=== PATIENT | male | born 1980 | race Two or more races ===

== ENCOUNTER 2018-08-18 14:26 | Emergency (ER) | payer MEDICAID ==
[~2018-08-18] VITALS: Ht 180.3 cm; Wt 74.4 kg
[2018-08-18 14:30] VITALS: BP 113/72
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
[2018-08-18] MEDS ORDERED: Acetaminophen 500mg (ES) tab ORAL ONE (14:45)
[2018-08-18 14:58] LABS: BASOPHILS % (AUTO) 0.4 % (0.0-2.0); EOSINOPHILS % (AUTO) 1.1 % (0.0-3.0); HEMATOCRIT 40.9 % (42.0-52.0); HEMOGLOBIN 14.1 G/DL (14.2-18.0); LYMPHOCYTES % (AUTO) 19.9 % (20.0-45.0); MEAN CORPUSCULAR VOLUME 91 FL (80-99); MONOCYTES % (AUTO) 8.2 % (1.0-10.0); NEUTROPHILS % (AUTO) 70.4 % (45.0-75.0); PLATELET COUNT 265 K/UL (150-450); RED BLOOD COUNT 4.52 M/UL (4.70-6.10); RED CELL DISTRIBUTION WIDTH 12.9 % (11.6-14.8); WHITE BLOOD COUNT 8.1 K/UL (4.8-10.8)
--- NOTE | 2018-08-18 15:00 | NUR ---
ED Nurse Note: CT called.
[2018-08-18 15:33] LABS: ANION GAP 10 mmol/L (5-15); BLOOD UREA NITROGEN 13 mg/dL (7-18); CALCIUM 8.5 MG/DL (8.5-10.1); CARBON DIOXIDE 29 MMOL/L (21-32); CHLORIDE 105 MMOL/L (98-107); POTASSIUM 3.3 MMOL/L (3.5-5.1); SODIUM 144 MMOL/L (136-145)
[2018-08-18 15:37] LABS: ALANINE AMINOTRANSFERASE 23 U/L (12-78); ALBUMIN 3.2 G/DL (3.4-5.0); ALBUMIN/GLOBULIN RATIO 0.9 (1.0-2.7); ALKALINE PHOSPHATASE 83 U/L (46-116); ASPARTATE AMINO TRANSFERASE 16 U/L (15-37); BILIRUBIN,TOTAL 0.9 MG/DL (0.2-1.0); CREATINE KINASE 224 U/L (26-308)
--- NOTE | 2018-08-18 15:42 | Diagnostic Imaging Report ---
Indication: Head trauma headache Technique: Contiguous 5 mm thick transaxial imaging of the head obtained in a Siemens Sensation [address] scanner. Soft tissue and bone windows generated. Automatic Exposure Control was utilized. Total Dose length Product (DLP): 2115.[address] Dose Index Volume (CTDIvol): 70.38,28.19 mGy Comparison: none Findings: The size and configuration of the cortical sulci, basal cisterns, and ventricles are within normal limits for age. There is no mass effect, midline shift, or edema identified. There is no evidence of acute hemorrhage or abnormal intra-axial or extra-axial fluid collections. Left maxillary fracture is further discussed on CT facial bones. Impression: No mass effect, edema or acute bleed. Left facial injury. Refer to the CT facial bones. The CT scanner at [facility] is accredited by the [employer] and the scans are performed using dose optimization techniques as appropriate to a performed exam including Automatic Exposure control.
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
--- NOTE | 2018-08-18 15:55 | Diagnostic Imaging Report ---
Indication: Foot pain Comparison: None Findings: 2 views of the left foot were obtained. There is a fracture at the base of the first distal phalange extending into the interphalangeal joint. No other fractures are seen. IMPRESSION: Acute fracture involving the hallux
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
[2018-08-18 16:50] LABS: APPEARANCE,URINE CLEAR; BILIRUBIN, URINE NEGATIVE (NEGATIVE); COLOR,URINE PALE YELLOW; GLUCOSE, URINE (UA) NEGATIVE (NEGATIVE); KETONES,URINE NEGATIVE (NEGATIVE); LEUKOCYTE ESTERASE ,URINE NEGATIVE (NEGATIVE); NITRITE,URINE NEGATIVE (NEGATIVE); PH,URINE 5 (4.5-8.0); PROTEIN,URINE NEGATIVE (NEGATIVE); UROBILINOGEN,URINE NORMAL MG/DL (0.0-1.0)
--- NOTE | 2018-08-18 16:52 | Diagnostic Imaging Report ---
Indication: Dyspnea Comparison: None A single view chest radiograph was obtained. Findings: Cardiomediastinal appearance is within normal limits for age. The lungs are clear. Pulmonary vascularity is appropriate. The diaphragmatic contour is smooth and costophrenic angles are sharp. No pleural effusions are identified. The bones are unremarkable. Impression: No acute findings
[2018-08-18 17:04] VITALS: BP 120/79
[2018-08-18] MEDS ORDERED: HYDROcodone/Acetamin 10/325 tab ORAL ONE (17:45)
[2018-08-18 19:12] VITALS: BP 118/71
--- NOTE | 2018-08-18 19:12 | NUR ---
ED Nurse Note: [facility] unable to take a report at this time due to shift changes. will try 30mins.
--- NOTE | 2018-08-18 19:24 | NUR ---
HAND-OFF: Report given to MAAME Yu.
--- NOTE | 2018-08-18 19:58 | NUR ---
ED Nurse Note: Report given at Katie/ RN, ROOM 7131.
[2018-08-18 20:05] VITALS: BP 117/72
--- NOTE | 2018-08-18 20:05 | NUR ---
TRANSFER TO [facility]: Patient transferred to [facility], room 7131 as ordered. Report given to Katie/ MAAME. Belongings sent with Pt/EMS. Pt is A/O X4. VSS at this time.
== END 2018-08-18 20:05 | disposition short-term general hospital (02) ==
LOC: EDBD 14:26 → EMR 15:00
DX: S02.92XA Unspecified fracture of facial bones, initial encounter for closed fracture (principal); F10.129 Alcohol abuse with intoxication, unspecified; R06.00 Dyspnea, unspecified; S42.012A Anterior displaced fracture of sternal end of left clavicle, initial encounter for closed fracture; S02.40DA Maxillary fracture, left side, initial encounter for closed fracture; S02.32XA Fracture of orbital floor, left side, initial encounter for closed fracture; S02.40FA Zygomatic fracture, left side, initial encounter for closed fracture; S92.422A Displaced fracture of distal phalanx of left great toe, initial encounter for closed fracture; S10.93XA Contusion of unspecified part of neck, initial encounter; S00.93XA Contusion of unspecified part of head, initial encounter; W19.XXXA Unspecified fall, initial encounter; Y92.9 Unspecified place or not applicable; R11.0 Nausea
CPT/HCPCS: 36415; 70450; 70486; 70490; 71045; 71250; 73620; 80053; 80307; 80329; 81001; 82550; 85025; 85610; 85730; 86850; 86900; 86901; 93005; 96361; 96374; 99285; J2405